=== PATIENT | male | born 1965 ===

== ENCOUNTER 2025-10-26 07:36 | Outpatient (CLI) | payer OTHER, SELFPAY ==
--- NOTE | 2025-10-26 07:43 | US_ITS ---
WS: [id number] RIGHT UPPER QUADRANT ULTRASOUND HISTORY: ELEVATED LFT'S/HX OF FATTY LIVER COMPARISON: None available. Liver: 15.2 cm in length. Normal size liver and echogenicity. No bile duct dilatation or mass. Portal Vein: Normal hepatopetal flow with monophasic waveform. Gallbladder: Normally distended gallbladder. Numerous stones are present. No gallbladder wall thickening or edema. CBD: 0.4 cm Pancreas: Poorly visualized. Right kidney: 11.4 cm in length. Normal size and echogenicity. No hydronephrosis or mass. Aorta and IVC: Unremarkable abdominal aorta and IVC. No ascites. US/US abdomen limited [id number] IMPRESSION: 1. Cholelithiasis without acute cholecystitis. 2. Normal liver. 3. No intrahepatic duct dilatation.
== END 2025-10-26 07:37 | disposition home or self-care (01) ==
PROVIDERS: PCP Family Medicine Geriatric Medicine; Visit Provider Family Medicine Geriatric Medicine
DX: K80.20 Calculus of gallbladder without cholecystitis without obstruction (principal); M18.12 Unilateral primary osteoarthritis of first carpometacarpal joint, left hand; M19.042 Primary osteoarthritis, left hand
CPT/HCPCS: 73130; 76705; 99204